=== PATIENT | female | born 1950 | race Caucasian/White ===

== ENCOUNTER → 2018-03-30 | Emergency (ER) | payer OTHER ==
[~2018-03-30] VITALS: Ht 185.4 cm; Wt 81.7 kg
[~2018-03-30] MED LIST: ASPIRIN81 MG PO; ATENOLOL-CHLOR1 EAC1 PO; CRESTOR20 MG PO; IBU400 MG PO
--- NOTE | 2018-03-31 07:11 | EKG ---
[facility] [address] [facility] [place] [address] Signed Sinus rhythm with 1st degree AV block Otherwise normal ECG No previous ECGs available Confirmed by SYED HERRERA MD ([id number] on 03/31/2018 7:11:03 AM Electronically Signed By: SYED HERRERA MD 03/31/18 0711 PATIENT NAME: HOLLY SMITH Electrocardiogram DATE OF : 46 PHYSICIAN: SYED HERRERA MD REPORT #: [id number] REPORT IS CONFIDENTIAL AND NOT TO BE RELEASED WITHOUT AUTHORIZATION
== END ==
LOC: ED 15:35
DX: R07.9 Chest pain, unspecified (principal); Z79.82 Long term (current) use of aspirin; Z79.899 Other long term (current) drug therapy
CPT/HCPCS: 71045; 80053; 84484; 85025; 85379; 93005; 93010; 99284